=== PATIENT | female | born 1960 | race Caucasian/White ===

== ENCOUNTER 2018-11-10 17:37 | Emergency (ER) | payer OTHER ==
[~2018-11-10] VITALS: Ht 167.6 cm; Wt 77.1 kg
[2018-11-10] MEDS ORDERED: PROPOFOL 200 MG/20 ML BOTTLE ONE (18:07)
[2018-11-10] MEDS ORDERED: PROPOFOL 200 MG/20 ML BOTTLE IV ONE (18:15)
--- NOTE | 2018-11-10 18:29 | NUR ---
PT'S RT HIP REDUCED. POST R HIP XRAY DONE. MONITOR SHOWED NSR. IA8=365% ON RO[place]. PTY AWAKE.
[2018-11-10] MEDS ORDERED: PROPOFOL 1,000 MG/100 ML BOTTLE IV ONE (18:45)
--- NOTE | 2018-11-10 18:51 | NUR ---
IV D/C'D PT D/C'D HOME, ACI /ABDUCTION PILLOW GIVEN. PT AMBUKLATED W/O DIFF/TOOK ALL BELONGINGS
[2018-11-10 18:52] VITALS: BP 138/77
== END 2018-11-10 18:53 | disposition home or self-care (01) ==
LOC: ER 17:42
DX: T84.020A Dislocation of internal right hip prosthesis, initial encounter (principal); Z88.2 Allergy status to sulfonamides; Z88.8 Allergy status to other drugs, medicaments and biological substances; Z90.89 Acquired absence of other organs; W01.0XXA Fall on same level from slipping, tripping and stumbling without subsequent striking against object, initial encounter; Y93.89 Activity, other specified; Y92.89 Other specified places as the place of occurrence of the external cause; Y99.8 Other external cause status
CPT/HCPCS: 73502; A4663; G0500; J3490